=== PATIENT | female | born 2000 | race Caucasian/White ===

== ENCOUNTER → 2021-05-11 | Outpatient (CLI) | payer OTHER ==
--- NOTE | 2021-05-11 12:57 | KCIC ---
EXAM: Left hand, 3 views. HISTORY: Pain. Blunt trauma. COMPARISON: None. FINDINGS: 3 views of the left hand are obtained. There is no fracture, dislocation or subluxation. Th ere is no foreign body. IMPRESSION: No acute osseous finding. Electronically signed by: Mary Thomason MD (05/11/2021 12:54 PM) [id number]
== END ==
LOC: KCIC 11:41
PROVIDERS: ATTEND Nurse Practitioner Family
DX: M79.642 Pain in left hand (principal)
CPT/HCPCS: 73130

== ENCOUNTER → 2021-08-19 | Outpatient (CLI) | payer OTHER ==
--- NOTE | 2021-08-19 14:38 | KCIC ---
XR LUMBAR SPINE 2-3V DATE: 08/19/2021 9:05 AM INDICATION: LUMBAR PAIN. Chronic lower back pain since childbirth/epidural 8 mths ago. COMPARISON: None. FINDINGS: Five non-rib bearing lumbar-type vertebral bodies are present. Bones/Alignment: No evidence of acute compression fracture. There is no listhesis. Joints: There is no disc space loss. Miscellaneous: None. IMPRESSION: No osseous abnormalities. Electronically signed by: Wilmer Fields MD (08/19/2021 2:36 PM) LILY
== END ==
LOC: KCIC 08:56
PROVIDERS: ATTEND Nurse Practitioner Family
DX: M54.50 Low back pain, unspecified (principal)
CPT/HCPCS: 72100